=== PATIENT | female | born 1995 | race Caucasian/White ===

== ENCOUNTER → 2021-04-06 14:38 | Outpatient (BNVA) | payer SELFPAY | PROVIDERS: Visit Provider Internal Medicine | DX: Z02.79 Encounter for issue of other medical certificate (principal) ==

== ENCOUNTER 2023-02-11 20:10 | Emergency (ER) | payer OTHER, SELFPAY ==
[2023-02-11 20:14] VITALS: BP 117/80; PULSE 83; RESP 18; TEMP 37.1; O2SAT 98; BMI 26.1
--- NOTE | 2023-02-11 20:17 | ED.GENADULT ---
HPI - General Adult General Chief complaint: General Medical Stated complaint: blood in stool Time Seen by Provider: 02/12/23 00:49 Source: patient Mode of arrival: ambulatory Limitations: no limitations History of Present Illness HPI narrative: 27-year-old female with no major medical problems presents with bright red blood per rectum. Patient has had 3 episodes since last week. First episode was blood tinged stool. Second episode was bright red blood on toilet tissue and today again she had slight amount of blood tinged stool. Said no chest pain, palpitations or lightheadedness. She denies any rectal pain, hemorrhoids, burning itching, abdominal pain. Prior to these 3 episodes she has never had any issues like this before. She is not on any blood thinning medications. Patient called her primary care provider who referred her to the emergency department. Related Data Previous Rx's Medication Instructions Recorded hydrocortisone 2.5 % topical cream 1 appl [place] DAILY PRN hemorrhoids 02/12/23 with perineal applicator #30 grams (Anusol-HC) Allergies Allergy/AdvReac Type Severity Reaction Status Date / Time No Known Allergies Allergy Verified 02/11/23 20:19 Review of Systems Review of Systems: CONSTITUTIONAL: Denies weight loss, fever and chills. HEENT: Denies changes in vision and hearing. RESPIRATORY: Denies SOB and cough. CV: Denies palpitations no CP. GI: Denies abdominal pain, nausea, vomiting and diarrhea. : Denies dysuria and urinary frequency. MSK: Denies myalgia and joint pain. SKIN: Denies rash and pruritus. NEUROLOGICAL: Denies headache and syncope. PSYCHIATRIC: Denies recent changes in mood. Denies anxiety and depression. All other ROS are negative unless in HPI Physical Exam ED Vital Signs: Vital Signs - 24 hr 02/11/23 20:14 02/12/23 00:43 Temperature 98.7 F 98.1 F Pulse Rate 83 66 Respiratory Rate 18 16 Blood Pressure 117/80 122/74 Pulse Oximetry 98 98 Oxygen Delivery Method Room Air Room Air BMI result Body Mass Index 26.1 GEN: Well developed, no acute distress, alert, oriented HEENT: Normocephalic, atraumatic, normal external ears, nose appears normal Eyes: Normal to appearance Neck: Supple, no lymphadenopathy Respiratory: Talks in complete sentences, no respiratory distress Extremities: No clubbing cyanosis or edema Neurologic: No focal neurologic deficits, cranial nerves 2-12 intact, gait normal Skin: No rash Rectal: No external hemorrhoids, guaiac-negative brown stool Course Course Course Narrative: RME: 27yo F w/no sig PMHx c/o bright red rectal bleeding x few days when wiping and in stool. Denies rectal pain, constipation, hx hemorrhoids, N/V, lightheaded/dizziness, abdominal pain. denies taking AC Labs, UA, occult stool ordered Full HPI, ROS and PE to be performed by primary ED provider. Medical Decision Making Medical Decision Making [facility] Narrative: Patient presents with bright red blood per rectum x3 episodes, minor in nature. She has no other systemic symptoms. Her abdomen is benign. Rectal exam did not reveal a any external hemorrhoids. I do suspect internal hemorrhoids although I was not able to palpate them. I doubt diverticular bleeding, colitis, diverticulitis. There is no indication for emergent imaging. I would recommend vigilance, hydrocortisone cream a follow-up gastroenterology. For more significant symptoms, patient will return for re-evaluation. Lab Data [facility] Lab Attestation statement: I reviewed the patient's lab results. 02/11/23 20:29 02/11/23 20:29 Labs: Lab Results 02/11/23 02/11/23 Range/Units 20:29 20:29 WBC 8.9 (4.8-10.8) X10*3/uL RBC 4.20 (4.20-5.50) X10*6/uL Hgb 10.4 L (12.0-16.0) g/dl Hct 32.4 L (37.0-47.0) % MCV 77.1 L (80.0-98.0) fL MCH 24.8 L (27.0-33.0) pg MCHC 32.1 (31.0-35.0) g/dl RDW 14.8 (11.0-16.0) % Plt Count 380 (160-400) X10*3/uL MPV 9.6 (9.4-12.3) fL Immature Gran % (Auto) 0.2 (0.0-0.4) % Neut % (Auto) 59.5 (45-73) % Lymph % (Auto) 32.7 (20-40) % [place] % (Auto) 6.1 (2-11) % Eos % (Auto) 0.9 (0-4) % Baso % (Auto) 0.6 (0-2) % Lymph # (Auto) 2.9 (1.2-4.9) X10*3/uL [place] # (Auto) 0.5 (0.1-1.2) X10*3/uL Eos # (Auto) 0.1 (0.0-0.4) X10*3/uL Baso # (Auto) 0.1 (0.0-0.2) X10*3/uL Abs Immat Gran (auto) 0.02 (0.00-0.03) X10*3/uL Absolute Neuts (auto) 5.3 (2.0-8.3) x10*3/uL Absolute Nucleated RBC 0.000 (0.0-0.012) X10*3/uL Nucleated RBC % (auto) 0.0 (0.0-0.2) /100WBC Sodium 138 (135-145) mmol/L Potassium 3.7 (3.3-5.1) mmol/L Chloride 107 (96-108) mmol/L Carbon Dioxide 23 (22-29) mmol/L Anion Gap 12 (12-20) BUN 7 L (9-16) mg/dL Creatinine 0.70 (0.5-1.4) mg/dL Estim Creat Clear Calc 114.1 Estimated GFR > 60 Random Glucose 97 (60-115) mg/dL Calcium 9.4 (8.4-10.2) mg/dL Total Bilirubin 0.3 (0.0-1.0) mg/dL Direct Bilirubin 0.1 (0.0-0.5) mg/dL AST 17 (5-31) U/L ALT 12 (0-31) U/L Alkaline Phosphatase 79 (39-117) U/L Total Protein 7.8 (6.5-8.0) g/dL Albumin 4.2 (3.5-5.0) g/dL Patient reports history of chronic anemia due to iron deficiency Discharge Plan Discharge Clinical Impression: Bright red blood per rectum Patient Disposition: Home, Self-Care Instructions: Rectal Bleeding (ED) Prescriptions: New hydrocortisone [Anusol-HC] 2.5 % cream with perineal applicator 1 appl ID DAILY PRN (Reason: hemorrhoids) Qty: 30 0RF Referrals: Eulogio Monk [Physician] -
[2023-02-11 20:33] LABS: MANUAL DIFF FLAG NO
[2023-02-11 20:44] LABS: Basophils Absolute Auto 0.1 X10*3/uL (0.0-0.2); Basophils Percent Auto 0.6 % (0-2); Eosinophils Absolute Auto 0.1 X10*3/uL (0.0-0.4); Eosinophils Percent Auto 0.9 % (0-4); Hematocrit 32.4 % (37.0-47.0); Hemoglobin 10.4 g/dl (12.0-16.0); Imm Gran Abs Auto 0.02 X10*3/uL (0.00-0.03); Imm Gran Pct Auto 0.2 % (0.0-0.4); Lymphocytes Absolute Auto 2.9 X10*3/uL (1.2-4.9); Lymphocytes Percent Auto 32.7 % (20-40); Mean Corpuscular HGB Conc 32.1 g/dl (31.0-35.0); Mean Corpuscular Hemoglobin 24.8 pg (27.0-33.0); Mean Corpuscular Volume 77.1 fL (80.0-98.0); Mean Platelet Volume 9.6 fL (9.4-12.3); Monocytes Absolute Auto 0.5 X10*3/uL (0.1-1.2); Monocytes Percent Auto 6.1 % (2-11); Neutrophils Absolute Auto 5.3 x10*3/uL (2.0-8.3); Neutrophils Percent Auto 59.5 % (45-73); Platelet Count 380 X10*3/uL (160-400); Red Cell Distribution Width 14.8 % (11.0-16.0); White Blood Count 8.9 X10*3/uL (4.8-10.8)
[2023-02-11 20:54] LABS: Alanine Aminotransferase 12 U/L (0-31); Albumin Level 4.2 g/dL (3.5-5.0); Alkaline Phosphatase 79 U/L (39-117); Anion Gap 12 (12-20); Aspartate Amino Transferase 17 U/L (5-31); Bilirubin Direct 0.1 mg/dL (0.0-0.5); Bilirubin Total 0.3 mg/dL (0.0-1.0); Blood Urea Nitrogen 7 mg/dL (9-16); Calcium 9.4 mg/dL (8.4-10.2); Carbon Dioxide 23 mmol/L (22-29); Chloride 107 mmol/L (96-108); Creatinine Clr Calc Pharmacy 114.1; Estimated Glomerular Filt Rate > 60; Glucose Random 97 mg/dL (60-115); Potassium 3.7 mmol/L (3.3-5.1); Sodium 138 mmol/L (135-145); Total Protein 7.8 g/dL (6.5-8.0)
[2023-02-12 00:43] VITALS: BP 122/74; PULSE 66; RESP 16; TEMP 36.7; O2SAT 98
--- NOTE | 2023-02-12 00:44 | MHC.EDTECH ---
this pct just assumed care of patient vitals sign taken ,pt said she is unable to give urine sample at this time ,because she just void .
== END 2023-02-12 01:19 | disposition home or self-care (01) ==
PROVIDERS: Physician Assistant; Emergency Provider Emergency Medicine
DX: K62.5 Hemorrhage of anus and rectum (principal); D50.9 Iron deficiency anemia, unspecified
CPT/HCPCS: 36415; 80048; 80076; 85025; 99283

== ENCOUNTER 2023-11-28 16:47 | Emergency (ER) | payer OTHER, SELFPAY ==
--- NOTE | ~2023-11-28 | CT_ITS ---
EXAMINATION: CT SOFT TISSUE NECK WITH CONTRAST CLINICAL INFORMATION: Left-sided neck lump COMPARISON: None available. TECHNIQUE: Following the intravenous administration of 75 mL of Omnipaque 350 intravenous contrast, helical imaging was performed in the axial plane with generation of coronal and sagittal reformatted images. This CT examination was performed using dose optimization techniques as appropriate, variously including the following: *Automated exposure control *Adjustment of mA and/or kV according to patient size (this includes techniques or standardized protocols for targeted exams where dose is matched to indication/reason for exam; i.e. extremities or head) *Use of iterative reconstruction technique DLP: 412 mGy-cm FINDINGS: The nasopharynx, oropharynx, and hypopharynx are patent. No mucosal pharyngeal abnormality is seen. The parapharyngeal fat is preserved. The transportation economics teacher, parotid, and submandibular spaces appear normal and symmetric bilaterally. Scattered bilateral cervical lymph nodes, including a left level VA node measuring up to 1.7 cm in the axial plane. The carotid vasculature is patent. Epiglottis is unremarkable. The thyroid gland is unremarkable. The lung apices are clear. Visualized portions of the brain parenchyma are unremarkable. The mastoid air cells are well aerated. The paranasal sinuses are clear. The visualized orbits are unremarkable. The mandibular condyles are well-seated in the condylar fossa. No acute fracture is seen. CT/CT soft tissue neck w IV con IMPRESSION: Scattered bilateral cervical lymph nodes, including a prominent left level VA node measuring up to 1.7 cm which is nonspecific and may be reactive. Clinical follow-up is recommended, and if symptoms persist, targeted ultrasound may be helpful. No additional acute findings identified.
[2023-11-28 17:10] VITALS: BP 128/84; PULSE 78; RESP 16; TEMP 36.9; O2SAT 100; BMI 27.5
--- NOTE | 2023-11-28 17:10 | ED.GENADULT ---
HPI - General Adult General Chief complaint: General Medical Stated complaint: lump on neck Time Seen by Provider: 11/29/23 00:50 Related Data Previous Rx's ?Medication ?Instructions ?Recorded hydrocortisone 2.5 % topical cream 1 appl [place] DAILY PRN hemorrhoids 02/12/23 with perineal applicator #30 grams (Anusol-HC) Allergies Allergy/AdvReac Type Severity Reaction Status Date / Time lorazepam [From Ativan] Allergy Anaphylaxis Verified 11/28/23 17:12 [facility] Social History Social History Advance Directives: No Advance Directives Information Provided: Yes Do you have a plan to hurt others: No Plan Patient : No Physical Exam ED Vital Signs: BMI result Body Mass Index 27.5 Course Course Course Narrative: This is an RME done by ELENA Parker: Additional HPI, ROS, PE not included below will be deferred to primary provider. 28 yo female no known pmh presents with new lump on left side of neck which she first noticed today. Deneis fever, chills, night sweats, recent weight loss. Denies recent travel. Medications Administered Discontinued Medications Generic Name Dose Route Start Last Admin Trade Name Freq PRN Reason Stop Dose Admin Iohexol 85 ml 11/29/23 01:05 11/29/23 01:06 Iohexol 350 Mg/Ml 100 Ml Infus..Btl IV 11/29/23 01:06 85 ml ONCE ONE Administration Medical Decision Making Lab Data 11/28/23 17:35 11/28/23 17:35 Labs: Lab Results 11/28/23 Range/Units 17:35 WBC 7.7 (4.8-10.8) X10*3/uL RBC 4.59 (4.20-5.50) X10*6/uL Hgb 11.4 L (12.0-16.0) g/dl Hct 34.8 L (37.0-47.0) % MCV 75.8 L (80.0-98.0) fL MCH 24.8 L (27.0-33.0) pg MCHC 32.8 (31.0-35.0) g/dl RDW 15.8 (11.0-16.0) % Plt Count 342 (160-400) X10*3/uL MPV 9.4 (9.4-12.3) fL Immature Gran % (Auto) 0.3 (0.0-0.4) % Neut % (Auto) 60.8 (45-73) % Lymph % (Auto) 28.7 (20-40) % [place] % (Auto) 8.7 (2-11) % Eos % (Auto) 1.0 (0-4) % Baso % (Auto) 0.5 (0-2) % Lymph # (Auto) 2.2 (1.2-4.9) X10*3/uL [place] # (Auto) 0.7 (0.1-1.2) X10*3/uL Eos # (Auto) 0.1 (0.0-0.4) X10*3/uL Baso # (Auto) 0.0 (0.0-0.2) X10*3/uL Abs Immat Gran (auto) 0.02 (0.00-0.03) X10*3/uL Absolute Neuts (auto) 4.7 (2.0-8.3) x10*3/uL Absolute Nucleated RBC 0.000 (0.0-0.012) X10*3/uL Nucleated RBC % (auto) 0.0 (0.0-0.2) /100WBC ESR 18 (0-20) MM/HR Sodium 138 (135-145) mmol/L Potassium 4.0 (3.3-5.1) mmol/L Chloride 109 H (96-108) mmol/L Carbon Dioxide 22 (22-29) mmol/L Anion Gap 11 L (12-20) BUN 7 L (9-16) mg/dL Creatinine 0.73 (0.5-1.4) mg/dL Estim Creat Clear Calc 115.1 Estimated GFR > 60 Random Glucose 96 (60-115) mg/dL Calcium 9.8 (8.4-10.2) mg/dL Total Bilirubin 0.2 (0.0-1.0) mg/dL AST 17 (5-31) U/L ALT 16 (0-31) U/L Alkaline Phosphatase 88 (39-117) U/L C-Reactive Protein 0.11 (< or = 0.50) mg/dL Total Protein 8.0 (6.5-8.0) g/dL Albumin 4.5 (3.5-5.0) g/dL Discharge Plan Discharge Clinical Impression: Lymph node enlargement Patient Disposition: Home, Self-Care Instructions: Lymphadenopathy (ED) Additional Instructions: Take your medications as prescribed. If you were prescribed antibiotics today, it is important that you take your medication to their entirety, do not skip any doses, do not finish them early. Follow-up with your primary care provider this week. Return to the emergency department with new or worsening symptoms. Such as fevers, chills, chest pain, shortness of breath, nausea, vomiting, dizziness, headache, vision changes, lethargy In case of emergency call 911 Prescriptions: No Action hydrocortisone [Anusol-HC] 2.5 % cream with perineal applicator 1 appl MD DAILY PRN (Reason: hemorrhoids) Qty: 30 0RF Referrals: [facility] [Provider Group] - 12/02/23 Physician,Parish J [Primary Care Provider] - Interventions: ED Discharge Assessment Last Done: 11/29/23 03:46 Discharge Date/Time: 11/29/23 03:47 Print Language: Uzbek
[2023-11-28 17:43] LABS: MANUAL DIFF FLAG NO
[2023-11-28 17:44] LABS: Basophils Percent Auto 0.5 % (0-2); Eosinophils Absolute Auto 0.1 X10*3/uL (0.0-0.4); Hematocrit 34.8 % (37.0-47.0); Hemoglobin 11.4 g/dl (12.0-16.0); Imm Gran Abs Auto 0.02 X10*3/uL (0.00-0.03); Imm Gran Pct Auto 0.3 % (0.0-0.4); Lymphocytes Absolute Auto 2.2 X10*3/uL (1.2-4.9); Lymphocytes Percent Auto 28.7 % (20-40); Mean Corpuscular HGB Conc 32.8 g/dl (31.0-35.0); Mean Corpuscular Hemoglobin 24.8 pg (27.0-33.0); Mean Corpuscular Volume 75.8 fL (80.0-98.0); Mean Platelet Volume 9.4 fL (9.4-12.3); Monocytes Absolute Auto 0.7 X10*3/uL (0.1-1.2); Monocytes Percent Auto 8.7 % (2-11); Neutrophils Absolute Auto 4.7 x10*3/uL (2.0-8.3); Neutrophils Percent Auto 60.8 % (45-73); Platelet Count 342 X10*3/uL (160-400); Red Blood Count 4.59 X10*6/uL (4.20-5.50); Red Cell Distribution Width 15.8 % (11.0-16.0); White Blood Count 7.7 X10*3/uL (4.8-10.8)
[2023-11-28 17:57] LABS: Alanine Aminotransferase 16 U/L (0-31); Albumin Level 4.5 g/dL (3.5-5.0); Alkaline Phosphatase 88 U/L (39-117); Anion Gap 11 (12-20); Aspartate Amino Transferase 17 U/L (5-31); Bilirubin Total 0.2 mg/dL (0.0-1.0); Blood Urea Nitrogen 7 mg/dL (9-16); C Reactive Protein 0.11 mg/dL (< or = 0.50); Calcium 9.8 mg/dL (8.4-10.2); Carbon Dioxide 22 mmol/L (22-29); Chloride 109 mmol/L (96-108); Creatinine Clr Calc Pharmacy 115.1; Estimated Glomerular Filt Rate > 60; Glucose Random 96 mg/dL (60-115); Sodium 138 mmol/L (135-145)
[2023-11-28 18:43] LABS: Erythrocyte Sedimentation Rate 18 MM/HR (0-20)
[2023-11-29] MEDS: iohexoL 350 MG/ML 100 ML INFUS..BTL 85 ML IV (01:06)
[2023-11-29 01:12] VITALS: BP 112/58; PULSE 63; RESP 16; TEMP 37.1; O2SAT 97
--- NOTE | 2023-11-29 01:51 | ED_ITS ---
HPI - General Adult General Chief complaint: General Medical Stated complaint: lump on neck Time Seen by Provider: 11/29/23 00:50 History of Present Illness HPI narrative: Patient is a 28-year-old female presents today with having a lump in her neck. It is over the posterior aspect of the neck. It is mobile she noticed it at about 16:00 today. There has no gross change in voice. There has no difficulty in swallowing. There is no difficulty with breathing. Patient from home Related Data Previous Rx's ?Medication ?Instructions ?Recorded hydrocortisone 2.5 % topical cream 1 appl [place] DAILY PRN hemorrhoids 02/12/23 with perineal applicator #30 grams (Anusol-HC) Allergies Allergy/AdvReac Type Severity Reaction Status Date / Time lorazepam [From Ativan] Allergy Anaphylaxis Verified 11/28/23 17:12 Review of Systems 2 Review of Systems: No fever no chills no diaphoresis No coughing or congestion or upper respiratory symptoms Yes all other systems are reviewed and are negative [facility] Past Medical History Attestation statement: The following information was validated with the patient. Social History Social History Advance Directives: No Advance Directives Information Provided: Yes Do you have a plan to hurt others: No Plan Patient : No Physical Exam ED Vital Signs: Vital Signs - 24 hr 11/28/23 17:10 11/29/23 01:12 Temperature 98.4 F 98.7 F Pulse Rate 78 63 Respiratory Rate 16 16 Blood Pressure 128/84 112/58 L Pulse Oximetry 100 97 Oxygen Delivery Method Room Air Room Air BMI result Body Mass Index 27.5 Appearance: Alert. Oriented X3. No acute distress. Eyes: Pupils equal, round and reactive to light. ENT: Pharynx normal. Neck: Normal inspection. Neck supple. Positive lymph node noted in the left posterior neck. Clearly mobile. Approximately 1 cm x 1 cm in size CVS: Normal heart rate and rhythm. Pulses normal. Normal S1 and S2 Respiratory: No respiratory distress. Breath sounds normal. No Wheezing. No rales Abdomen: Soft and nontender. No rigidity. No distention. good BS x4 Skin: Skin warm and dry. Normal skin color. Normal skin turgor. Extremities: No lower extremity edema. Neurovascular intact to all extremities. No Lacerations. No Rash Neuro: Oriented X 3. No motor deficit. No sensory deficit. Moving all extermities. No slurred speech Medications Administered Discontinued Medications Generic Name Dose Route Start Last Admin Trade Name Tessie PRN Reason Stop Dose Admin Iohexol 85 ml 11/29/23 01:05 11/29/23 01:06 Iohexol 350 Mg/Ml 100 Ml Infus..Btl IV 11/29/23 01:06 85 ml ONCE ONE Administration Medical Decision Making Medical Decision Making [facility] Narrative: Patient well appearing no acute distress. CT scan of the neck was ordered. Soft tissue neck CT showed lymph nodes. Question reactive to infection versus allergic versus malignancy. Will require follow-up on an outpatient basis. Explained to patient. In stable condition otherwise airway intact. No difficulty swallowing. No difficulty with voice. Patient is being discharged home. Differential Diagnosis Differential Diagnoses: The differential diagnosis associated with the presentation includes Allergy, infection, malignancy Admission/Observation Consideration of admission/observation: Escalation of care including admission/observation considered Lab Data [facility] Lab Attestation statement: I reviewed the patient's lab results. 11/28/23 17:35 11/28/23 17:35 Labs: Lab Results 11/28/23 Range/Units 17:35 WBC 7.7 (4.8-10.8) X10*3/uL RBC 4.59 (4.20-5.50) X10*6/uL Hgb 11.4 L (12.0-16.0) g/dl Hct 34.8 L (37.0-47.0) % MCV 75.8 L (80.0-98.0) fL MCH 24.8 L (27.0-33.0) pg MCHC 32.8 (31.0-35.0) g/dl RDW 15.8 (11.0-16.0) % Plt Count 342 (160-400) X10*3/uL MPV 9.4 (9.4-12.3) fL Immature Gran % (Auto) 0.3 (0.0-0.4) % Neut % (Auto) 60.8 (45-73) % Lymph % (Auto) 28.7 (20-40) % [place] % (Auto) 8.7 (2-11) % Eos % (Auto) 1.0 (0-4) % Baso % (Auto) 0.5 (0-2) % Lymph # (Auto) 2.2 (1.2-4.9) X10*3/uL [place] # (Auto) 0.7 (0.1-1.2) X10*3/uL Eos # (Auto) 0.1 (0.0-0.4) X10*3/uL Baso # (Auto) 0.0 (0.0-0.2) X10*3/uL Abs Immat Gran (auto) 0.02 (0.00-0.03) X10*3/uL Absolute Neuts (auto) 4.7 (2.0-8.3) x10*3/uL Absolute Nucleated RBC 0.000 (0.0-0.012) X10*3/uL Nucleated RBC % (auto) 0.0 (0.0-0.2) /100WBC ESR 18 (0-20) MM/HR Sodium 138 (135-145) mmol/L Potassium 4.0 (3.3-5.1) mmol/L Chloride 109 H (96-108) mmol/L Carbon Dioxide 22 (22-29) mmol/L Anion Gap 11 L (12-20) BUN 7 L (9-16) mg/dL Creatinine 0.73 (0.5-1.4) mg/dL Estim Creat Clear Calc 115.1 Estimated GFR > 60 Random Glucose 96 (60-115) mg/dL Calcium 9.8 (8.4-10.2) mg/dL Total Bilirubin 0.2 (0.0-1.0) mg/dL AST 17 (5-31) U/L ALT 16 (0-31) U/L Alkaline Phosphatase 88 (39-117) U/L C-Reactive Protein 0.11 (< or = 0.50) mg/dL Total Protein 8.0 (6.5-8.0) g/dL Albumin 4.5 (3.5-5.0) g/dL Radiology Impression Discussion of test interpretation with radiology: I have reviewed the radiologist's reading. Discharge Plan Discharge Clinical Impression: Lymph node enlargement Instructions: Lymphadenopathy (ED) Prescriptions: No Action hydrocortisone [Anusol-HC] 2.5 % cream with perineal applicator 1 appl [place] DAILY PRN (Reason: hemorrhoids) Qty: 30 0RF Referrals: [facility] [Provider Group] - 12/02/23 Physician,Unknown J [Primary Care Provider] - Print Language: Bangladeshi
[2023-11-29 03:37] VITALS: BP 105/62; PULSE 61; RESP 16; TEMP 36.8; O2SAT 98
--- NOTE | 2023-11-29 03:39 | PC.NURSE ---
pt denies pain, waiting for results. pt willing to stay for results and now is ready for discharge. pt has no diffiulty swallowing, pt is talking in full sentences, no drooling. pt is able to move all extremities.
[2023-11-29 03:46] VITALS: BP 105/62; PULSE 61; RESP 16; TEMP 36.8; O2SAT 98
== END 2023-11-29 03:47 | disposition home or self-care (01) ==
PROVIDERS: Physician Assistant; Emergency Provider Emergency Medicine Emergency Medical Services
DX: R59.9 Enlarged lymph nodes, unspecified (principal)
CPT/HCPCS: 36415; 70491; 80053; 85025; 85652; 86140; 99284; Q9967

== ENCOUNTER 2024-04-22 19:54 | Emergency (ER) | payer OTHER, SELFPAY ==
--- NOTE | 2024-04-22 | ECG_ITS ---
Test Reason : CP Blood Pressure : / mmHG Vent. Rate : 082 BPM Atrial Rate : 082 BPM P-R Int : 138 ms QRS Dur : 070 ms QT Int : 410 ms P-R-T Axes : 038 001 009 degrees QTc Int : 479 ms Normal sinus rhythm Septal infarct , age undetermined Abnormal ECG No previous ECGs available Referred By: Generic ED Physician Electronically Signed By:Asif Benavides
--- NOTE | ~2024-04-22 | XR_ITS ---
EXAMINATION: XR CHEST CLINICAL INFORMATION: Chest pain COMPARISON: None available. TECHNIQUE: 2 views of the chest were obtained. FINDINGS: No focal consolidation, pulmonary edema, or pleural effusion. Normal cardiomediastinal silhouette. XR/XR chest 2V IMPRESSION: No acute cardiopulmonary findings. Electronically signed by: Pankaj Segura MD 04/22/2024 09:27 PM EDT RP
[2024-04-22 20:39] VITALS: BP 115/69; PULSE 81; RESP 18; TEMP 36.7; O2SAT 99; BMI 27.2
[2024-04-22 20:53] LABS: MANUAL DIFF FLAG NO
[2024-04-22 20:57] LABS: Basophils Absolute Auto 0.1 X10*3/uL (0.0-0.2); Basophils Percent Auto 0.4 % (0-2); Eosinophils Absolute Auto 0.1 X10*3/uL (0.0-0.4); Eosinophils Percent Auto 0.7 % (0-4); Hematocrit 32.5 % (37.0-47.0); Hemoglobin 10.5 g/dl (12.0-16.0); Imm Gran Abs Auto 0.04 X10*3/uL (0.00-0.03); Imm Gran Pct Auto 0.4 % (0.0-0.4); Lymphocytes Absolute Auto 3.5 X10*3/uL (1.2-4.9); Lymphocytes Percent Auto 30.6 % (20-40); Mean Corpuscular HGB Conc 32.3 g/dl (31.0-35.0); Mean Corpuscular Hemoglobin 23.8 pg (27.0-33.0); Mean Corpuscular Volume 73.5 fL (80.0-98.0); Mean Platelet Volume 9.4 fL (9.4-12.3); Monocytes Absolute Auto 0.8 X10*3/uL (0.1-1.2); Monocytes Percent Auto 6.8 % (2-11); Neutrophils Absolute Auto 6.9 x10*3/uL (2.0-8.3); Neutrophils Percent Auto 61.1 % (45-73); Platelet Count 401 X10*3/uL (160-400); Red Blood Count 4.42 X10*6/uL (4.20-5.50); Red Cell Distribution Width 14.3 % (11.0-16.0); White Blood Count 11.3 X10*3/uL (4.8-10.8)
[2024-04-22 20:58] LABS: Appearance Urine Clear; Color Urine Yellow; Glucose Urine UA Negative (Negative); Leukocyte Esterase Urine Small (1+) (Negative); Nitrite Urine Negative (Negative); UMIC TRIGGER UACC YES; Urine Blood Negative (Negative); Urine Ketones Negative (Negative); Urine Protein Negative (Neg-Trace)
[2024-04-22 21:13] LABS: Alanine Aminotransferase 19 U/L (0-31); Albumin Level 4.4 g/dL (3.5-5.0); Alkaline Phosphatase 85 U/L (39-117); Anion Gap 13 (12-20); Aspartate Amino Transferase 24 U/L (5-31); Bacteria Urine Trace (None Seen); Bilirubin Total 0.2 mg/dL (0.0-1.0); Blood Urea Nitrogen 8 mg/dL (9-16); Calcium 9.5 mg/dL (8.4-10.2); Carbon Dioxide 22 mmol/L (22-29); Chloride 108 mmol/L (96-108); Creatinine Clr Calc Pharmacy 119.5; Estimated Glomerular Filt Rate > 60; Glucose Random 92 mg/dL (60-115); Hyaline Casts Urine 0-2 /LPF (0-2); Potassium 4.2 mmol/L (3.3-5.1); RBC Urine 0-2 /HPF (0-2); Sodium 139 mmol/L (135-145); Squamous Epithelial Cell Urine 0-2 /HPF (0-2); Total Protein 7.7 g/dL (6.5-8.0); UACC Culture Trigger YES; WBC Urine 0-5 /HPF (0-5)
[2024-04-22 21:21] LABS: Troponin-I High Sensitivity < 2.7 ng/L (<3.5-17.0)
[2024-04-22 22:52] VITALS: BP 117/71; PULSE 68; RESP 18; TEMP 36.8; O2SAT 100
--- NOTE | 2024-04-22 23:01 | ED.CHESTPAIN ---
HPI - Chest Pain General Chief Complaint: Chest Pain Stated Complaint: chest pain/numbness-pcp sent pt on Time Seen by Provider: 04/22/24 22:38 Source: patient History of Present Illness ED Provider: Stanley KHALIL narrative: 28-year-old female presenting for left-sided chest pain and shortness of breath. Patient states that her symptoms began this morning around 11:00 with sharp left-sided chest pain that was intermittent throughout the day. Chest pain was not associated with activity. Later that day she noticed shortness of breath as well however denies diaphoresis. Patient denies fevers, chills, cough, nausea, vomiting, abdominal pain, urinary symptoms. Patient denies recent travel, recent surgery and she is not on oral contraceptives. Related Data Previous Rx's ?Medication ?Instructions ?Recorded hydrocortisone 2.5 % topical cream 1 appl [place] DAILY PRN hemorrhoids 02/12/23 with perineal applicator #30 grams (Anusol-HC) Allergies Allergy/AdvReac Type Severity Reaction Status Date / Time lorazepam [From Ativan] Allergy Anaphylaxis Verified 04/22/24 20:39 Review of Systems Review of Systems: Patient endorses chest pain and shortness of breath Yes all other systems are reviewed and are negative [facility] Social History Social History Smoked in Last 30 Days: No Use of substances other than those prescribed or required for medical reasons: No Advance Directives: No Advance Directives Information Provided: Yes Do you have a plan to hurt others: No Plan Patient : No Physical Exam Vital Signs: Vital Signs: Last Vital Signs Temp 98.0 F 04/23/24 00:52 Pulse 87 04/23/24 00:52 Resp 14 04/23/24 00:52 BP 116/72 04/23/24 00:52 Pulse Ox 98 04/23/24 00:52 O2 Del Method Room Air 04/23/24 00:52 BMI result Body Mass Index 27.2 Well-appearing female in no acute distress with unlabored breathing Lungs clear to auscultation bilaterally; normal S1-S2 regular rate and rhythm; no chest wall tenderness to palpation Abdomen is soft nontender nondistended Medications Administered Discontinued Medications Generic Name Dose Route Start Last Admin Trade Name Freq PRN Reason Stop Dose Admin Acetaminophen 650 mg 04/22/24 23:53 04/23/24 00:09 Acetaminophen 325 Mg Tablet PO 04/22/24 23:54 650 mg ONCE ONE Administration Ketorolac Tromethamine 15 mg 04/22/24 23:53 04/23/24 00:30 Ketorolac Tromethamine 15 Mg/Ml Vial IM 04/22/24 23:54 Not Given ONCE ONE Medical Decision Making Medical Decision Making [facility] Narrative: This is a 28-year-old female presenting with left-sided chest pain shortness of breath. I am concerned for the following; costochondritis, pleuritis, pneumothorax, muscular strain/sprain -patient's chest pain is atypical and she Percs out; low suspicion for ACS, PE, dissection -labs and imaging studies ordered -bedside echo negative for the following; enlarged RV, dilated aortic root, pericardial effusion -lab work notable for mild leukocytosis, stable H&H, electrolytes within normal limits, normal creatinine, negative troponin x2 negative lipase -I did not appreciate pneumothorax or large consolidation on patient's chest x-ray and the radiology interpretation was negative for any acute findings -patient declined Toradol however accepted Tylenol -patient declined COVID swab -unclear etiology for patient's chest pain and given unremarkable workup I feel that patient can be discharged with outpatient follow up -I told the patient follow up with her PCP and gave her strict return precautions Differential Diagnosis Differential Diagnoses: The differential diagnosis associated with the presentation includes Costochondritis, pleuritis, pneumothorax, muscle strain/sprain Lab Data 04/22/24 20:48 04/22/24 20:48 Labs: Lab Results 04/22/24 04/22/24 04/23/24 Range/Units 20:48 23:00 Unknown WBC 11.3 H (4.8-10.8) X10*3/uL RBC 4.42 (4.20-5.50) X10*6/uL Hgb 10.5 L (12.0-16.0) g/dl Hct 32.5 L (37.0-47.0) % MCV 73.5 L (80.0-98.0) fL MCH 23.8 L (27.0-33.0) pg MCHC 32.3 (31.0-35.0) g/dl RDW 14.3 (11.0-16.0) % Plt Count 401 H (160-400) X10*3/uL MPV 9.4 (9.4-12.3) fL Immature Gran % (Auto) 0.4 (0.0-0.4) % Neut % (Auto) 61.1 (45-73) % Lymph % (Auto) 30.6 (20-40) % [place] % (Auto) 6.8 (2-11) % Eos % (Auto) 0.7 (0-4) % Baso % (Auto) 0.4 (0-2) % Lymph # (Auto) 3.5 (1.2-4.9) X10*3/uL [place] # (Auto) 0.8 (0.1-1.2) X10*3/uL Eos # (Auto) 0.1 (0.0-0.4) X10*3/uL Baso # (Auto) 0.1 (0.0-0.2) X10*3/uL Abs Immat Gran (auto) 0.04 H (0.00-0.03) X10*3/uL Absolute Neuts (auto) 6.9 (2.0-8.3) x10*3/uL Absolute Nucleated RBC 0.000 (0.0-0.012) X10*3/uL Nucleated RBC % (auto) 0.0 (0.0-0.2) /100WBC Sodium 139 (135-145) mmol/L Potassium 4.2 (3.3-5.1) mmol/L Chloride 108 (96-108) mmol/L Carbon Dioxide 22 (22-29) mmol/L Anion Gap 13 (12-20) BUN 8 L (9-16) mg/dL Creatinine 0.70 (0.5-1.4) mg/dL Estim Creat Clear Calc 119.5 Estimated GFR > 60 Random Glucose 92 (60-115) mg/dL Calcium 9.5 (8.4-10.2) mg/dL Total Bilirubin 0.2 (0.0-1.0) mg/dL AST 24 (5-31) U/L ALT 19 (0-31) U/L Alkaline Phosphatase 85 (39-117) U/L Troponin I High Sens < 2.7 < 2.7 (<3.5-17.0) ng/L Total Protein 7.7 (6.5-8.0) g/dL Albumin 4.4 (3.5-5.0) g/dL Lipase 31 (8-78) U/L Beta HCG, Quant Cancelled Urine Color Yellow Urine Appearance Clear Urine pH 7.0 (5.0-9.0) Ur Specific [place] 1.010 (1.005-1.025) Urine Protein Negative (Neg-Trace) mg/dL Urine Glucose (UA) Negative (Negative) mg/dL Urine Ketones Negative (Negative) mg/dL Urine Blood Negative (Negative) Urine Nitrite Negative (Negative) Ur Leukocyte Esterase Small (1+) H (Negative) Urine RBC 0-2 (0-2) /HPF Urine WBC 0-5 (0-5) /HPF Ur Squamous Epith Cells 0-2 (0-2) /HPF Urine Bacteria Trace (None Seen) Hyaline Casts 0-2 (0-2) /LPF Urine Test NEGATIVE (NEGATIVE) Discharge Plan Discharge Clinical Impression: Atypical chest pain Patient Disposition: Home, Self-Care Additional Instructions: Please follow up with your primary care provider in the next 24-48 hours If you develop any new or worsening symptoms please return to the emergency department You can take Tylenol and/or ibuprofen for pain management Prescriptions: No Action hydrocortisone [Anusol-HC] 2.5 % cream with perineal applicator 1 appl [place] DAILY PRN (Reason: hemorrhoids) Qty: 30 0RF Interventions: ED Discharge Assessment Last Done: 04/23/24 00:52 Discharge Date/Time: 04/23/24 00:52 Print Language: Armenian
[2024-04-22 23:17] LABS: Lipase 31 U/L (8-78)
[2024-04-22 23:25] LABS: Troponin-I High Sensitivity < 2.7 ng/L (<3.5-17.0)
[2024-04-23] MEDS: Acetaminophen 325 MG TABLET 650 MG PO (00:09)
[2024-04-23 00:16] LABS: UPreg QC Valid YES; Urine Pregnancy NEGATIVE (NEGATIVE)
--- NOTE | 2024-04-23 00:19 | MHC.EDTECH ---
Patient refused the Sars/Flu/Rsv,swab,RN and provider made aware
[2024-04-23 00:52] VITALS: BP 116/72; PULSE 87; RESP 14; TEMP 36.7; O2SAT 98
== END 2024-04-23 00:52 | disposition home or self-care (01) ==
PROVIDERS: Emergency Provider Student in an Organized Health Care Education/Training Program; PCP Internal Medicine
DX: R07.89 Other chest pain (principal)
CPT/HCPCS: 36415; 71046; 80053; 81001; 81003; 81025; 83690; 84484; 84702; 85025; 87086; 93005; 96372; 99284; 99285

== ENCOUNTER → 2024-04-22 19:55 | Outpatient (BNV) | payer OTHER, SELFPAY | PROVIDERS: Emergency Provider Student in an Organized Health Care Education/Training Program; PCP Internal Medicine; Visit Provider Internal Medicine Cardiovascular Disease | DX: R94.31 Abnormal electrocardiogram [ECG] [EKG] (principal) | CPT/HCPCS: 93010 ==